=== PATIENT | male | born 1990 | race Caucasian/White ===

== ENCOUNTER 2023-11-19 07:57 | Emergency (ER) | payer OTHER, SELFPAY ==
[2023-11-19 07:59] VITALS: BP 126/72
[2023-11-19 08:08] VITALS: BMI 26.5
--- NOTE | 2023-11-19 08:33 | ED.GENMED ---
History of Present Illness
General
Chief Complaint: Headache
Source: patient
Time Seen by Provider: 11/19/23 08:17
Travel History
Have you had any contact with someone who has COVID-19?: No
Do you have any symptoms of coronavirus? Fever > 100 degrees, chills, cough, shortness of breath, sore throat, loss of taste or smell, muscle aches, or headache?: No
History of Present Illness
History of Present Illness:
33-year-old male presents emergency room with headache, body aches, chills. Patient epidural performed 5 days ago. Patient thought might be associate with this. Headache began 3 days ago. Sick 2 days after the epidural. Occasional nausea. No
vomiting. He does have a mild cough and sore throat as well.
Phy Exam
Physical Exam
Physical Exam:
General: Awake, Alert, Oriented X3. No acute distress.
Vitals: unremarkable
Head: Atraumatic
Eyes: Pupils equal, EOMI
Throat: Airway intact, no exudates
Neck: Trachea midline, no nuchal rigidity
Lungs: Clear and equal b/l
Heart: Regular rate, no murmurs
Abd: Soft, Nontender, No pulsatile mass
Neuro: Nonfocal
Skin: Warm, dry, no rash
Extremities: pulses equal b/l, no edema
Course
Orders/Labs/Results
Orders:
Orders
11/19/23 08:33
0.9% Sodium Chloride 1000 ml [Nss] 1,000 ml IV BOLUS
Ketorolac [Toradol] 15 mg IV NOW STA
11/19/23 08:52
COVID-19 Antigen Urgent
Source: Nasal Swab
Influenza A+B Rapid Molecular Urgent
SHAHID Source: Nasal Swab
Specimen Description:
11/19/23 10:13
Diphenhydramine [Benadryl] 25 mg IV NOW STA
Metoclopramide [Reglan] 10 mg IV NOW STA
11/19/23 12:29
Butalb/Acetaminophen/Caffeine [Fioricet] 2 tab PO NOW STA
Vital Signs
Initial and Last Documented VS:
Initial Vital Signs
Temp Pulse Resp BP Pulse Ox
97.9 F 58 18 126/72 99
11/19/23 07:59 11/19/23 07:59 11/19/23 07:59 11/19/23 07:59 11/19/23 07:59
Last Documented Vital Signs
Temp Pulse Resp BP Pulse Ox
97.9 F 50 18 113/73 97
11/19/23 07:59 11/19/23 12:57 11/19/23 07:59 11/19/23 12:57 11/19/23 12:57
MDM/Problems Addressed
Differential Diagnosis Includes:
Tension headache, migraine headache, post dural puncture headache
MDM/Problems Addressed:
Patient presents with headache that began about 48 hours after an epidural. Headache is worse with standing. He denies significant trauma Toradol. He had some improvement Reglan and Benadryl. Fioricet helped as well. Patient to go home.
Recommend he call his doctor who performed the epidural for follow-up. Prescription for Fioricet sent
*Pulse Oximetry
Patient hypoxic: no
*Critical Care Note
Total Time (30-74mins, 75-104mins- exclusive of procedures): Not Applicable
ED Attending Note
-
Portions of this chart may have been created with voice recognition software.� Occasional wrong word or��sound alike� substitutions may have occurred due to the inherent limitations of voice recognition software.
Discharge Plan
Departure
Patient Disposition: Home (Routine Discharge)
Date of Disposition: 11/19/23
Time of Disposition: 12:49
Patient with high blood pressure during this ER visit?: No
Discharge Problem:
Headache, Postoperative spinal headache
Instructions: Spinal headache
Prescriptions:
New
bavuqynpej-mvbltniykzrjt-frgt [Fioricet] 50-300-40 mg capsule
1 cap PO Q6H PRN (Reason: Pain) Qty: 30 0RF
No Action
dextroamphetamine-amphetamine [Adderall] 30 mg Tablet
30 mg PO DAILY
dextroamphetamine-amphetamine [Adderall] 10 mg Tablet
10 mg PO 1500
oxycodone 10 mg Tablet
10 mg PO TIDPRN PRN (Reason: back pain )
Referrals:
Carlos Marie MD [Family Provider] -
Interventions
Interventions:
*Risk Screen - Suicide Last Done: 11/19/23 08:09
*General Assessment Last Done: 11/19/23 08:08
*Neglect/Abuse Screening Last Done: 11/19/23 08:09
ED- Fall Risk Assessment Last Done: 11/19/23 08:08
*ED COVID-19 Vaccine History Last Done: 11/19/23 08:01
*Nursing Disposition Last Done: 11/19/23 12:57
ED- Neurological Assessment Last Done: 11/19/23 08:12
Discharge Date and Time
Discharge Date/Time: 11/19/23 12:58
[2023-11-19] MEDS: NSS 1000 IV (08:50)
[2023-11-19] MEDS: TORADOL 15 MG IV (08:51)
[2023-11-19 08:53] VITALS: BP 121/71
[2023-11-19 09:00] VITALS: BP 124/67
[2023-11-19 09:26] LABS: COVID-19 Antigen Negative (Negative)
[2023-11-19 10:00] VITALS: BP 92/66
[2023-11-19] MEDS: REGLAN 10 MG IV (10:34)
[2023-11-19] MEDS: BENADRYL 25 MG IV (10:34)
[2023-11-19 12:00] VITALS: BP 121/74
[2023-11-19] MEDS: FIORICET 2 TAB PO (12:34)
[2023-11-19 12:57] VITALS: BP 113/73
== END 2023-11-19 12:58 | disposition home or self-care (01) ==
LOC: EMR 07:57
PROVIDERS: EMERGENCY PHYSICIAN Emergency Medicine; FAMILY PHYSICIAN Internal Medicine
DX: G97.1 Other reaction to spinal and lumbar puncture (principal)
CPT/HCPCS: 99283; 96374; 96375; 96361; 87502; 87811